=== PATIENT | female | born 1985 | race Caucasian/White ===

== ENCOUNTER 2020-01-02 12:45 | Outpatient (REF) | payer SELFPAY ==
[2020-01-02 13:16] LABS: Chol HDL Ratio 2.72 mg/dL (0.0-4.40); Cholesterol 204 mg/dL (0-200); Glucose 84 mg/dL (65-115); HDL Cholesterol 75 mg/dL (60-100); LDL Cholesterol Calculated 119 mg/dL (50-129); LDL HDL Ratio 1.59 RATIO (0.00-3.22); Triglycerides 49 mg/dL (0-150)
[2020-01-02 13:37] LABS: Estmated Average Glucose 88; Hemoglobin A1C 4.7 % (4.0-6.0)
== END 2020-01-02 12:46 | disposition home or self-care (01) ==
LOC: LAB 12:45
DX: Z01.89 Encounter for other specified special examinations (principal)
CPT/HCPCS: 80061; 82947; 83036

== ENCOUNTER → 2023-07-08 07:03 | Outpatient (BNVA) | payer OTHER, SELFPAY | PROVIDERS: Referring Provider Dermatology; Visit Provider Student in an Organized Health Care Education/Training Program | DX: S83.8X1A Sprain of other specified parts of right knee, initial encounter; X58.XXXA Exposure to other specified factors, initial encounter | CPT/HCPCS: 73560; 73565 ==

== ENCOUNTER 2023-08-05 14:16 | Outpatient (CLI) | payer OTHER, SELFPAY ==
--- NOTE | 2023-08-05 14:30 | MR_ITS ---
WS: [id number] MRI RIGHT KNEE NONCONTRAST TECHNIQUE: Axial PD, coronal PD fat sat, coronal PD, sagittal PD, and sagittal PD fat-sat images obta ined. CLINICAL INFORMATION: painful right knee COMPARISON: None. FINDINGS: Distal quadriceps and patellar tendons are intact. Hypertrophic patella. No significant joint effusio n. Normal ACL and PCL. Moderate tricompartment arthritis RIGHT knee. Normal lateral meniscus. Horizon dennise tear involving the posterior horn medial meniscus extending to the articular surface. Normal medial and lateral collateral ligaments. Fibular head is normal. Grade 2-3 chondromalacia medi al and lateral joint compartments with joint space narrowing. No subchondral edema. Moderate chondrom alacia patella. No Normal medial and lateral patellar retinaculum. Tiny popliteal cyst. IMPRESSION: 1. Moderate tricompartment arthritis. 2. Normal ACL and PCL. 3. Horizontal tear involving the posterior horn medial meniscus extending to the articular surface. 4. Moderate chondromalacia patella. 5. Grade III chondromalacia medial and lateral joint compartments. This is worst in the medial joint compartment. No subchondral edema. Outbridge grading:
== END 2023-08-05 14:17 | disposition home or self-care (01) ==
LOC: RAD 14:16
PROVIDERS: Visit Provider Student in an Organized Health Care Education/Training Program
DX: S83.241A Other tear of medial meniscus, current injury, right knee, initial encounter (principal); X58.XXXA Exposure to other specified factors, initial encounter; M17.11 Unilateral primary osteoarthritis, right knee; M22.41 Chondromalacia patellae, right knee
CPT/HCPCS: 73721

== ENCOUNTER 2023-09-27 08:36 | Day surgery (SDC) | payer OTHER, SELFPAY ==
[2023-09-27] VITALS (7 sets, daily range): BP systolic 112–127; BP diastolic 75–98; PULSE 66–100; RESP 16–18; TEMP 36.1–36.6; O2SAT 99–100; BMI 29.8
[2023-09-27 08:58] LABS: OR HCG Qualitative Urine Negative (Negative)
[2023-09-27] MEDS: sodium chloride 0.9% 1,000 ML 30 ML IV (09:15)
[2023-09-27] MEDS: ketorolac 30 mg/mL INJ IVP (09:16)
[2023-09-27] MEDS: acetaminophen 1,000 MG/100 ML PIGGYBACK 400 MG IV (09:17)
[2023-09-27] MEDS: scopolamine 1.5 Patch 1 PATCH TRANSDERMA (09:21)
--- NOTE | 2023-09-27 10:14 | W.PM.OPSFHP ---
Same Day Surgery H&P Indication for Procedure/HPI DATE OF PROCEDURE: September 27, 2023 CHIEF COMPLAINT/INDICATIONFOR SURGICAL PROCEDURE: Right knee medial meniscus tear PREOP DIAGNOSIS: Right knee medial meniscus tear PLANNED PROCEDURE: Operation Date: 09/27/23 10:20 Proposed Procedures p Knee Arthroscopy Knee Arthroscopy w/ partial Medial Menisectomy vs repair(Right) - Wesley Kimble, DO Medications/Allergies* Home Medications Medication Instructions Recorded Confirmed Type ibuprofen 200 mg capsule 200 mg PO Q6H PRN Pain 07/08/23 09/27/23 History Allergies/Adverse Reactions Allergy/AdvReac Type Severity Reaction Status Date / Time No Known Allergies Allergy Unverified 09/27/23 09:05 Pertinent History/Comorbid Conditions* Social History Smoking and tobacco/nicotine status: never used tobacco/nicotine Alcohol intake: current Alcohol intake frequency: holidays/special occasions only Pertinent Exam Findings alert, oriented x 3, operative site marked and procedure specific exam findings Right knee exam - positive joint effusion -ROM 0-140 degrees -Medial and lateral joint line tenderness -Negative Loyd's -Negative valgus, negative varus -Positive Guru's test with pain and no clicking -Patient can wiggle toes, right lower extremity warm well-perfused Recommendations Surgery/Procedure today Other Plans: Plan to proceed to the OR today with right knee diagnostic and surgical arthroscopy with partial medial meniscectomy versus repair Coding Level of Care Code Acute Code for Irina Fwjarod
[2023-09-27] MEDS: ceFAZolin 2,000 MG in sodium chloride 0.9% (plus) 50 ML 100 MG IV (10:25)
[2023-09-27] MEDS: lidocaine-epi 2% 20 mL INJ 40 ML INJECTION (10:50)
--- NOTE | 2023-09-27 11:37 | P.BOP_ITS ---
Date of Procedure: [September 27, 2023] Surgeon: [Dr. Darden DO] Electro Mechanical Technician(s): [Swapnil Darden PA-C] Procedure(s) performed: [Right knee diagnostic and surgical arthroscopy Medial meniscus repair Bone marrow stimulation medial patellofemoral chondroplasty Extensive synovectomy] Findings of the procedure(s): [Right knee medial meniscus tear and chondromalacia of the medial lateral joint compartment and chondromalacia patella] Estimated blood loss: [5 mL] Specimen(s) removed: [N/A] Post-operative diagnosis: [Right knee medial meniscus tear and chondromalacia of the medial lateral joint compartment and chondromalacia patella]
--- NOTE | 2023-09-27 11:40 | PM.PACU ---
PACU note Narrative: Patient is a 38-year-old female just underwent a right knee surgical arthroscopy with medial meniscus repair. Pt transferred to PACU in stable condition. Dressing dry and hinged knee brace intact. pt is awake and alert. pt can wiggle toes and plantarflex and dorsiflex foot. pt able to perform straight leg raise, Femoral nerve intact. Distal pulses are palpable toes are warm and well-perfused. Cap refill is normal and under 2 seconds. Sensation to foot is intact. Pain is controlled. Exam: awake Disposition: discharged
--- NOTE | 2023-09-27 12:07 | ANES.PREANE2 ---
Pre-Anesthetic Assessment Height/Weight: Height 1.68 m Weight 83.915 kg Temp Pulse Resp BP Pulse Ox O2 Del Method 97 F L 92 16 113/82 100 Room Air 09/27/23 11:34 09/27/23 11:55 09/27/23 11:55 09/27/23 11:55 09/27/23 11:55 09/27/23 11:55 Preop Diagnosis: Right knee medial meniscus tear Operation Date: 09/27/23 10:20 Proposed Procedures p Knee Arthroscopy Knee Arthroscopy w/ partial Medial Menisectomy vs repair(Right) - Wesley Darden, Familial anesthetic complications: none Was Beta Saman taken within 24 hours: N/A Was Clonidine taken within 24 hours: N/A Last intake: Intake Last Liquid Date 09/26/23 Last Liquid Time 22:00 Last Solid Date 09/26/23 Last Solid Time 20:00 Social No alcohol and No tobacco Exam alert, oriented x 3, clear to auscultation bilaterally and regular rate & rhythm Airway Submandibular: within normal limits Cervical ROM: within normal limits Mallampati: Class II Dentition: full History/ROS No significant history except as noted Anesthetic Plan ASA status: 1 Anesthesia: General and Regional (specify below) (right adductor blk) Medications/Allergies Home Medications Medication Instructions Recorded Confirmed Last Taken Type ibuprofen 200 mg capsule 200 mg PO Q6H PRN Pain 07/08/23 09/27/23 Unknown History aspirin 325 mg tablet 325 mg PO DAILY 14 days #14 tabs 09/27/23 Unknown Rx hydrocodone 5 mg-acetaminophen 325 1 tab PO Q6H PRN pain 5 days #20 09/27/23 Unknown Rx mg tablet tabs ondansetron 4 mg disintegrating 4 mg PO Q8H PRN nausea and 09/27/23 Unknown Rx tablet vomiting 3 days #9 tabs Allergies Allergy/AdvReac Type Severity Reaction Status Date / Time No Known Allergies Allergy Unverified 09/27/23 09:05 Current Medications Generic Name Dose Route Start Last Admin Trade Name Freq PRN Reason Stop Dose Admin Lidocaine/Epinephrine 40 ml 09/27/23 10:00 09/27/23 10:50 Lidocaine-Epi 2% 20 Ml Inj INJECTION 09/27/23 10:01 40 ml ONCE ONE Administration PFSH Anesthesia Social History (Reviewed 08/24/23 @ 14:27 by MARISELA Reyes Smoking and tobacco/nicotine status: never used tobacco/nicotine Alcohol intake: current Alcohol intake frequency: holidays/special occasions only Female Reproductive History Date of last menstrual period: 09/07/23 Data Anesthesia Cardiac Studies: No Data to Display Anesthesia Procedures Nerve Block Nerve Block 1: Main Anesthesia: general anesthesia Time Out Performed: Yes Consent: requested by attending/covering physician, from patient, risks and benefits reviewed and patient agrees to proceed Nerve block location: adductor canal (right) Anesthesia monitors applied: pulse oximetry, EKG, BP cuff and oxygen Nerve block position: supine Anesthetic Used: ropivicaine 0.5% Amount of anesthesia used (mL): 20 Ultrasound used to: recognize landmarks Nerve Stimulator Used?: No Interscalene/Femoral BLK: 4 stimuplex 21 g needle used for position and inplane approach Injection: neg aspiration of heme Patient Tolerated Procedure: well Complications: none
--- NOTE | 2023-09-27 13:37 | PM.OP ---
Operative Report Date of procedure: September 27, 2023 Pre-op diagnosis: Right Knee Medial meniscus tear Right knee Chondromalacia Surgeon: Wesley Darden DO Special Population Paraprofessional: Swapnil Darden PA-C: PA was necessary for assistance in this case with leg positioning retraction and protection of neurovascular structures as well as assistance in meniscus repair fixation, wound closure and dressing application. Procedure: Post-op diagnosis: Right?knee?medial meniscus tear Right?knee?extensive synovitis Right?knee?Medial and patellofemoral chondromalacia Procedure done: Right?knee?diagnostic and surgical arthroscopy medial meniscus repair Right Knee bone marrow stimulation Right?knee?diagnostic and surgical arthroscopy with extensive synovectomy of the medial lateral and patellofemoral compartments Right?knee?diagnostic and surgical arthroscopy with medial and patellofemoral compartment chondroplasty Surgeon: Wesley Darden DO Estimated blood loss: 5 Tourniquet: No tourniquet was used IV fluids: See anesthesia record Complications: None Findings: See operative report narrative Condition: stable Disposition: same day Brief History: Patient is a 38-year-old male with right?knee?pain.? Patient has failed conservative treatment who has been worked up for right??knee?pain in the outpatient setting. MRI findings consistent with tear of the medial meniscus. talked in the office about treatment options patient would like to proceed with a right?knee?diagnostic and surgical arthroscopy with partial medial meniscectomy vs repair.? Patient understand the ins and outs of the procedure the risk benefits complication alternatives to treatment options.? Understanding risk of surgery they agree to proceed with surgical intervention.? Patient understand this may not provide patient with complete symptomatic relief of? pain as patient does have some underlying arthritis.? Understanding this and patient agree to proceed with surgical intervention all questions answered. Procedure: Patient seen and evaluated in the preoperative holding area.? Consent was reviewed and signed with patient.? Correct extremity was then marked.? Patient seen evaluated Anesthesia Department once cleared for surgery patient was taken back to the operative suite.? Patient was transported onto the OR table in supine position.? All bony prominences well-padded patient was appropriate secured to the bed.? Once appropriately anesthetized a nonsterile tourniquet was applied to the right thigh.? The right lower extremity was then prepped and draped in standard orthopedic fashion.? Final timeout performed.? Patient received appropriate preoperative antibiotics. Patient received local anesthetic of lidocaine with epinephrine into the joint as well as around the portal sites.? No tourniquet was inflated A standard 2 portal vertical incision diagnostic and surgical arthroscopy of the right?knee?was performed in standard fashion.? Small stab incision made in the inferolateral portal introduced trocar and arthroscope into the suprapatellar pouch.? Suprapatellar pouch was subsequently visualized and found to have significant synovitis but no loose bodies.? Patient had noticeable significant inflamed infrapatellar fat pad and thickening hypertrophic within the patellofemoral compartment.? ?The medial gutter was free of loose bodies I then introduced the arthroscope into the medial compartment.? Within the medial compartment I then established my inferior medial working portal utilizing spinal needle outside in technique.? Once established I then visualized our articular cartilage of the medial compartment with a valgus stress.? Patient was found to have grade 2-3 chondromalacia throughout the medial compartment.? Next I inspected the meniscus.? With an arthroscopic probe was utilized to visual? all aspects of the meniscus.? Meniscal root was found to be intact.? Patient was found to have a longitudinal tear of the posterior horn of the medial meniscus that had meniscocapsular separation that showed some hypermobility of the meniscus. There was no signs of horizontal tears. At this point time given its location and the red red zone at meniscocapsular junction as well as the hypermobility of this meniscus feel given her young age this would be amendable for surgical fixation. As a result plan was for an all inside technique at this point in time I was able to switch the camera to a medial viewing portal to accommodate for more lateral trajectory of meniscal repair. Once confirmed tear and plan for repair I subsequently had my rep open and Arthrex fiber stitch all inside meniscal repair kit. At this point in time I utilized a probe to visualize appropriate trajectory to have excellent repair and contouring back of the meniscus. At this point time 1/2 pipe was introduced to help protect the meniscal repair stitch from hitting any soft tissue half pipe was placed meniscal fiber stitch was then advanced and then deployed a horizontal mattress stitch tension my first loop which had excellent fixation as well as tension my final loop which had excellent security of the meniscocapsular separation of the longitudinal tear of the medial meniscus at the posterior horn once this was tensioned appropriately I then utilized an arthroscopic suture cutter remove the excess suture and then utilized an arthroscopic probe to evaluate at this point in time there is no need for any further stitches as this adhered this against the meniscocapsular junction and had excellent fixation. Once again the meniscus was probed and there is no evidence of instability and no mobility of the meniscus any longer at the longitudinal tear site. Patient was found to have grade 2 3 chondromalacia medially and as a result proceeded with chondroplasty at this time. ? Next, I then performed a synovectomy of the medial compartment.? Given patient's chondromalacia there was areas of unstable articular cartilage and I subsequently performed a chondroplasty with arthroscopic shaver and thermal wand.? This completed medial compartment work. Next a introduced the arthroscope to the intercondylar notch.? PCL and ACL were intact. patient had significant thickening of the infrapatellar fat pad spanning into the medial and lateral compartments.? I then performed an extensive synovectomy with the arthroscopic shaver of the patellofemoral medial and lateral compartments as well as the intercondylar notch. Next I introduced the arthroscope into the lateral compartment the lateral compartment was found to have grade 1 chondromalacia.? Lateral meniscus was found to be intact.? The root was intact.? Given the grade II chondromalacia there is no unstable cartilage pieces to perform chondroplasty.? This completed my work of the lateral compartment and then performed a synovectomy of the lateral compartment.? Next of the arthroscope was placed into the lateral gutter and this was free of loose bodies.? Finally I reintroduced the arthroscope into the patellofemoral compartment.? The patellofemoral was found to have grade 1-2 chondromalacia of the patellofemoral compartment.? At this point I utilized arthroscopic shaver as well as thermal wand to perform extensive synovectomy of the patellofemoral compartment. I did utilized thermal wand and arthroscopic shaver to debride the undersurface of the patella to perform a patellofemoral compartment chondroplasty as there was a small focal area of grade II chondromalacia at this site. This completed my work in the patellofemoral space. This completed my work of the patellofemoral space.? I then switch my portal sites to the medial working portal.? Completed the rest of my synovectomy and the rest of my examination arthroscopy was normal. In order to aid in meniscal repair and healing I subsequently floated a K wire as well as a drill debrided off the lateral femoral condyle at the intercondylar notch in front of the ACL footprint and then subsequently Drilled into the area dry and into the area for bone marrow stimulation to fermenter helper in healing. All fluid was suctioned from the joint.? ?All instruments were withdrawn.? Portal sites were closed with interrupted nylon suture.? portal sites were then covered with with Xeroform 4 x 4's ABD Curlex and Dillon wrap.? Patient was then subsequently awakened from anesthesia and taken to PACU in stable condition. Disposition: Patient taken to PACU in stable condition recovering well.? Will receive appropriate discharge structure as well as pain medication postoperatively as well as? DVT prophylaxis.we will have patient follow-up with us in the office in 2 weeks.? We will TTWB as tolerated to the right lower extremity.? Follow mensicus repair protocol. Patient understands and agrees with current plan.? All questions answered.
--- NOTE | 2023-09-27 15:55 | ANE.PACU2 ---
Inpatient post-anesthesia follow up: Airway intact: Yes Vital signs: Temperature 97.9 F Pulse Rate 95 Respiratory Rate 18 Blood Pressure 116/75 Pulse Oximetry 100 Oxygen Delivery Me thod Room Air Oxygen Flow Rate Fraction of Inspir ed Oxygen Hydration adequate: Yes Nausea and vomiting: No Pain level: 1 Mental status: Baseline
== END 2023-09-27 14:00 | disposition home or self-care (01) ==
PROVIDERS: Anesthesiology; Visit Provider Student in an Organized Health Care Education/Training Program
PROC: (CPT 29870; principal; 2023-09-27 10:20)
PROC: 07DT3ZX Extraction of Bone Marrow, Percutaneous Approach, Diagnostic (ICD-10-PCS; CPT 38222; 2023-09-27 10:20)
PROC: (CPT 29876; 2023-09-27 10:20)
PROC: (CPT 27310; 2023-09-27 10:20)
DX: S83.241A Other tear of medial meniscus, current injury, right knee, initial encounter (principal); X58.XXXA Exposure to other specified factors, initial encounter; M65.88 Other synovitis and tenosynovitis, other site; M22.41 Chondromalacia patellae, right knee; Z79.82 Long term (current) use of aspirin
CPT/HCPCS: 29876; 29882; 84703; C1713; J0131; J0690; J1100; J1885; J2250; J2405; J2704; J2795; J3010; J3490; J7030

== ENCOUNTER 2023-10-27 06:00 | Outpatient (RCR) | payer OTHER, SELFPAY | END 2023-11-10 23:59 | disposition home or self-care (01) | LOC: APT 06:00 | PROVIDERS: Visit Provider Student in an Organized Health Care Education/Training Program | DX: Z47.89 Encounter for other orthopedic aftercare (principal) | CPT/HCPCS: 97110; 97161; 97530 ==

== ENCOUNTER 2023-11-11 06:00 | Outpatient (RCR) | payer OTHER, SELFPAY | END 2023-12-09 23:59 | disposition home or self-care (01) | LOC: APT 06:00 | PROVIDERS: Visit Provider Student in an Organized Health Care Education/Training Program | DX: Z47.89 Encounter for other orthopedic aftercare (principal) | CPT/HCPCS: 97110; 97112; 97530 ==

== ENCOUNTER 2023-12-10 06:00 | Outpatient (RCR) | payer OTHER, SELFPAY | END 2024-01-09 23:59 | disposition home or self-care (01) | LOC: APT 06:00 | PROVIDERS: Visit Provider Student in an Organized Health Care Education/Training Program | DX: Z98.890 Other specified postprocedural states (principal) | CPT/HCPCS: 97110; 97530 ==

== ENCOUNTER 2024-01-10 06:00 | Outpatient (RCR) | payer OTHER, SELFPAY | END 2024-02-08 23:59 | disposition home or self-care (01) | LOC: APT 06:00 | PROVIDERS: Visit Provider Student in an Organized Health Care Education/Training Program | DX: Z98.890 Other specified postprocedural states (principal) | CPT/HCPCS: 97110; 97530 ==

== ENCOUNTER 2024-02-09 06:00 | Outpatient (RCR) | payer OTHER, SELFPAY | END 2024-03-10 23:59 | disposition home or self-care (01) | LOC: APT 06:00 | PROVIDERS: Visit Provider Student in an Organized Health Care Education/Training Program | DX: Z98.890 Other specified postprocedural states (principal) | CPT/HCPCS: 97110; 97140; 97530 ==

== ENCOUNTER → 2024-09-22 08:31 | Outpatient (BNVA) | payer OTHER, SELFPAY | PROVIDERS: Visit Provider Physician Assistant | DX: M25.561 Pain in right knee; M25.562 Pain in left knee; Z98.890 Other specified postprocedural states | CPT/HCPCS: 73560; 73565 ==

== ENCOUNTER 2024-12-21 09:10 | Outpatient (CLI) | payer OTHER, SELFPAY ==
--- NOTE | 2024-12-21 09:30 | MR_ITS ---
WS: [id number] MRI RIGHT KNEE NONCONTRAST TECHNIQUE: Axial PD, coronal PD fat sat, coronal PD, sagittal PD, and sagittal PD fat-sat images obtained. CLINICAL INFORMATION: M25.561 - Pain in right knee COMPARISON: None. FINDINGS: History of prior medial meniscectomy. Distal quadriceps and patella tendons are intact. ACL and PCL appear intact. Advanced tricompartmental arthritis progressive for a patient this age. This appears progressed compared to 2022. Hypertrophic patella. Grade IV chondromalacia patella. Small suprapatellar effusion. Subchondral edema involving the lateral tibial plateau. Lateral meniscus appears intact. Horizontal tear posterior horn medial meniscus with prior postoperative changes. Medial and lateral collateral ligaments normal popliteus. Normal popliteal fossa. MR/MR knee RT wo con* [id number] IMPRESSION: 1. Horizontal tear posterior horn medial meniscus. Evidence of prior partial m eniscectomy. 2. Advanced tricompartmental arthritis progressive for a patient this age. Thi s has advanced compared to previous. 3. Grade IV chondromalacia patella. 4. Subchondral edema involving the lateral tibial plateau compatible with grad e IV chondromalacia. 5. Small suprapatellar effusion. Outbridge grading: grade IV: full-thickness cartilage loss with underlying bone reactive changes
== END 2024-12-21 09:11 | disposition home or self-care (01) ==
PROVIDERS: Visit Provider Nurse Practitioner
DX: S83.241A Other tear of medial meniscus, current injury, right knee, initial encounter (principal); M25.461 Effusion, right knee; X58.XXXA Exposure to other specified factors, initial encounter; Z98.890 Other specified postprocedural states; M17.11 Unilateral primary osteoarthritis, right knee; M94.261 Chondromalacia, right knee; R93.6 Abnormal findings on diagnostic imaging of limbs
CPT/HCPCS: 73721

== ENCOUNTER → 2024-12-25 08:23 | Outpatient (BNVA) | payer OTHER, SELFPAY | PROVIDERS: Family Provider Nurse Practitioner; Visit Provider Nurse Practitioner | DX: M25.50 Pain in unspecified joint (principal) | CPT/HCPCS: 80053; 85025; 85651; 86140; 86431 ==

== ENCOUNTER → 2025-01-17 15:05 | Outpatient (BNVA) | payer OTHER, SELFPAY | PROVIDERS: PCP Nurse Practitioner; Visit Provider Student in an Organized Health Care Education/Training Program | DX: M17.11 Unilateral primary osteoarthritis, right knee (principal); S83.8X1A Sprain of other specified parts of right knee, initial encounter; X58.XXXA Exposure to other specified factors, initial encounter | CPT/HCPCS: 73560; 73565 ==